=== PATIENT | male | born 1965 | race Caucasian/White ===

== ENCOUNTER 2024-09-06 21:56 | Inpatient (IN) | payer MEDICAID ==
[~2024-09-06] VITALS: Ht 182.9 cm; Wt 89.5 kg
[2024-09-06] MEDS ORDERED: heparin 10,000 units/1 ML INJ IV PRN (22:05)
--- NOTE | 2024-09-06 22:06 | ELECTROCARDIOGRAPH REPORT ---
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 Sajan Mata Measurements Intervals [place] Rate: 82 P: 60 NH: 149 QRS: 41 QRSD: 90 T: 107 QT: 369 QTc: 431 Interpretive Statements Sinus rhythm Ventricular premature complex Probable left atrial enlargement Anteroseptal infarct, old Nonspecific T abnormalities, lateral leads Electronically Signed On 09-07-2024 6:34:[address] Sajan Mata Please click the below link to view image of tracing.
[2024-09-06 22:24] LABS: BASOPHILS # (AUTO) 0.1 X10'3 (0-0.2); BASOPHILS % (AUTO) 0.5 % (0-1); EOSINOPHILS # (AUTO) 0.1 X10'3 (0-0.9); EOSINOPHILS % (AUTO) 1.1 % (0-6); HEMATOCRIT 42.6 % (42.0-52.0); HEMOGLOBIN 14.3 g/dl (14.0-17.9); LYMPHOCYTES # (AUTO) 2.7 X10'3 (1.1-4.8); LYMPHOCYTES % (AUTO) 26.2 % (21-51); MEAN CORPUSCULAR HEMOGLOBIN 28.3 PG (27.0-31.0); MEAN CORPUSCULAR HGB CONC 33.6 g/dL (33.0-36.5); MEAN CORPUSCULAR VOLUME 84.3 FL (78-98); MEAN PLATELET VOLUME 8.7 FL (7.4-10.4); MONOCYTES # (AUTO) 0.7 X10'3 (0-0.9); MONOCYTES % (AUTO) 6.7 % (2-12); NEUTROPHILS # (AUTO) 6.8 X10'3 (1.8-7.7); NEUTROPHILS % (AUTO) 65.5 % (42-75); PLATELET COUNT 200 X10'3 (140-440); RED BLOOD COUNT 5.05 X10'6 (4.70-6.10); RED CELL DISTRIBUTION WIDTH 15.3 % (11.5-14.5); WHITE BLOOD COUNT 10.3 X10'3 (4.5-11.0)
[2024-09-06 22:37] LABS: PROTHROMBIN TIME 10.6 SECONDS (9.0-12.0)
[2024-09-06] MEDS: heparin 25,000 UNIT/250ml bag 250 ML IV PRN (22:51)
[2024-09-06] MEDS: MESSAGE TO NURSING IV ONE (23:01)
--- NOTE | 2024-09-06 23:02 | Physician Documentation ---
History of Present Illness ~ Chief Complaint: Chest Pain Stated Complaint: TRANSFER Time Seen by MD: 22:05 Primary Medical Doctor: None Mode of Arrival: EMS HPI This gentleman is a transferred from the outside facility for evaluation of NSTEMI. He presented to [facility] for evaluation of several hours of substernal chest pain radiating into left neck/jaw. Similar to his prior heart attacks which he had six of. No particular palliating factors, exertional, accompanied by shortness a breath. History of multiple stents. No concerns for tobacco, alcohol or illicit substance use at this time Medication Reconciliation Allergies: Coded Allergies: No Known Allergies (Unverified , 09/06/24) Review of Systems ROS 10 point review of systems was performed and unless noted above in HPI is negative for acute process/complaint. Physical Exam Vital Signs: Source: Oral, Heart Rate: 85, Respiratory Rate: 13, BP: 151/93, Pulse Oximetry: 92, Weight: 89.500 Oxygen Flow Rate: 0 Physical Exam GENERAL: Awake, alert, oriented, GCS 15, no apparent distress, non-toxic appearing, answers questions, follows commands appropriately. HEENT: Atraumatic, normocephalic, pupils equal, extraocular muscles intact, sclerae anicteric, mucus membranes moist, oropharynx is clear, no stridor. NECK: supple, full active range of motion, trachea midline, no thyromegaly, no lymphadenopathy, no JVD. CARDIOVASCULAR: regular rate/rhythm, no murmurs/gallops/rubs, Pulses are 2+ in all extremities and symmetric. Capillary refill less than 2 seconds. PULMONARY: Nonlabored, good air movement ,no respiratory distress, speaking in full sentences, clear to auscultation bilaterally, no wheezing, no ronchi, no rales, no accessory muscle use. GASTROINTESTINAL: Soft, non-tender, non-distended, normal active bowel sounds, no organomegaly, no pulsatile masses, no CVA tenderness. NEUROLOGIC: Lucid with normal mental status. Normal facial symmetry. Moves all extremities symmetrically and with purpose. No truncal ataxia. Speech is fluid without evidence of dysarthria or aphasia, no focal deficits appreciated. MUSCULOSKELETAL: There is full range of motion of all extremities. There is no joint pain or joint swelling or joint erythema. There is no muscle pain or tenderness or swelling. EXTREMITIES: warm, well-perfused, no cyanosis, no clubbing, no edema, no acute deformities. Skin: warm, dry, no rashes or lesions, no jaundice, no petechiae orpurpura. No ecchymosis. PSYCHIATRIC: Normal affect, normal insight, normal concentration. Focused exam: [] Progress Results/Orders Results/Orders Orders - BULMARO REAVES DO Monitor (09/06/24 22:00) Saline Lock (09/06/24 22:00) Oxygen (09/06/24 22:00) Hs Troponin I W Calculations (09/06/24 22:00) Hs Troponin I W Calculations (09/07/24 00:00) Hs Troponin I W Calculations (09/07/24 01:00) Heparin 25,000 Unit/250ml Bag (Heparin 2 (09/06/24 22:05) Heparin 10,000 Unit/Ml 1ml (Heparin 10,0 (09/06/24 22:05) Cbc/Diff (09/07/24 03:00) Cbc/Diff (09/08/24 03:00) Cbc/Diff (09/09/24 03:00) Cbc/Diff (09/10/24 03:00) Cbc/Diff (09/11/24 03:00) Cardiac Ptt (09/07/24 04:30) CMP (09/06/24 23:01) Completed Orders - BULMARO REAVES DO Electrocardiogram (09/06/24 22:00) Cardiac Ptt (09/06/24 22:00) Pt Inr (09/06/24 22:00) Cbc/Diff (09/06/24 22:04) Message To Nursing (09/06/24 22:30) Medications Received in ER Medications (Trade) Dose Ordered Sig/Rashmi Route PRN Reason Start Time Stop Time Status Last Admin Dose Admin Heparin Sodium/ Dextrose 250 ml @ 0 mls/hr Q0M PRN IV TO MAINTAIN PTT WITHIN RANGE 09/06/24 22:05 09/06/24 22:51 10 MLS/HR Vital Signs 09/06/24 09/06/24 22:02 22:40 Pulse 85 Resp 16 13 B/P (MAP) 151/93 Pulse Ox 92 O2 Flow Rate 0 Laboratory Tests Test 09/06/24 22:13 White Blood Count 10.3 Red Blood Count 5.05 Hemoglobin 14.3 Hematocrit 42.6 Mean Corpuscular Volume 84.3 Mean Corpuscular Hemoglobin 28.3 Mean Corpuscular Hemoglobin Concent 33.6 Red Cell Distribution Width 15.3 H Platelet Count 200 Mean Platelet Volume 8.7 Neutrophils (%) (Auto) 65.5 Lymphocytes (%) (Auto) 26.2 Monocytes (%) (Auto) 6.7 Eosinophils (%) (Auto) 1.1 Basophils (%) (Auto) 0.5 Neutrophils # (Auto) 6.8 Lymphocytes # (Auto) 2.7 Monocytes # (Auto) 0.7 Eosinophils # (Auto) 0.1 Basophils # (Auto) 0.1 CBC Comment Prothrombin Time 10.6 INR International Normalized Ratio 1.0 APTT (Heparin Protocol) 39 L Coagulation Comments Troponin I High Sensitivity 88425 *H Troponin I High Sens Percent Delta Troponin I Hi Sens Absolute Change EKG/XRAY/CT/US/VASC/MRI EKG : Additional Comment EKG was obtained and interpreted by myself shows sinus rhythm of 82, normal IL interval, narrow QRS, no QT prolongation, normal axis, no STEMI, to inversion in aVL noted. T-wave inversion in the V3 through V6 noted. Medical Decision Making Findings Facility Status: ED Holds, RME process The plan was discussed with the patient, who demonstrates clear understanding of the plan and is in agreement with the plan unless otherwise noted in the chart. All questions have been answered, all concerns were addressed unless otherwise documented. I was available throughout their ED stay for frequent reassessment and questions. Differential Diagnoses (considered and possible or likely): [Differential diagnosis considered includes chest wall pain, pleurisy, pneumonia, pulmonary embolus, GERD, esophagitis, gastritis, anxiety, stress reaction, costochondritis, acute coronary syndrome, aortic dissection, pericarditis, myocarditis, or pneumothorax.] ??Differential Diagnoses (considered and unlikely, not requiring evaluation currently): [Aortic/great vessels dissection was considered but it is unlikely based on absence of ripping, tearing, migratory chest pain, absence of syncope or focal neurologic deficits, physical examination indicating equal and symmetric pulses.] MDM Data Please see HPI for the following: Independent Historians and external Records Review. Historian: [Patient] Independent Historians: ?[EMS, record review] Medication Management: [Reviewed medication list] Social History and determinants: [Reviewed] Please see the body of the note for the following: Any independent interpretations of ECG, imaging studies. All vitals signs/haemodynamics, ordered tests were independently reviewed and interpreted by myself. Nursing triage complaint and vitals reviewed, additional nursing notes were reviewed as available and I agree unless otherwise noted or documented in contradiction in the chart Vital Signs: Independently reviewed Labs: Independently interpreted Imaging: Independently interpreted Old Medical Records: Independently reviewed, see HPI for relevant summary and information Pulse Oximetry: [97%] interpreted as [normal on room air] by me [Marketing Campaign Analyst: [Regular Rate, Regular rhythm, no ectopy, NSR] reviewed and interpreted by me] Additionally notably showing: [Hemodynamically stable. Laboratory [place] [address] in one] Tests considered but not ordered include: [Catheterization can be done on an inpatient basis] Social Determinants of Health Impact: Patient was evaluated in [facility], or [facility] [place] to healthcare due to below par ratio of patient to medical providers. [] Comorbid Conditions Impacting Present Evaluation and Care/Treatment: [History of multiple MIs] Management Discussions with other Healthcare Providers: [Hospitalist regarding admission] Treatment and Disposition Medication Management (Given or considered): [Heparin drip]. See EMR for details Consideration for Hospitalization/Escalation/Deescalation of Care: Admission for inpatient treatment is necessary for further management of his NSTEMI ?ED Course:?[No clinical deterioration] ?Shared decision making:?[] Code status:?FULL Please see the full Electronic Medical Record for full details of nursing documentation, medications list, other records of complete past medical history and conditions, vital signs, laboratory studies, and any radiologic study interpretations by radiologists. Portions of this note were completed using [employer] dictation software and as a result there may exist minor errors in spelling. I have reviewed elements of past family and social history and agree as included in note. Departure Disposition: 09 ADMITTED INPATIENT Impression: Primary Impression: NSTEMI (non-ST elevated myocardial infarction) Condition: Guarded Referrals: NO PRIMARY CARE PROVIDER (PCP) Education Educated: Patient Educated regarding: diagnosis, treatment, prognosis, need for follow up Critical Care Note Critical Care Note CRITICAL CARE TIME: [45 ] minutes Treatments/Evaluations: Close monitoring and treatment of unstable vital signs, cardiorespiratory, and neurologic status, while maintaining tight balance of fluid, respiratory, and cardiac interventions. This time includes discussing the case with the patient and the patients family. This time does not include all procedures stated elsewhere in this record. This time also includes reviewing old records, labs and radiological studies. This time includes examining and re- examining the patient. Additionally, this time also includes arranging care with admitting and consulting physicians. Signature Scribe Signature: No scribe Attestation: This note accurately reflects clinical decisions, work performed by myself, DO JEAN PAUL Lee NICHOLAS M DO September 06, 2024 23:02
[2024-09-06] MEDS ORDERED: LOP12.5T PO (23:20)
[2024-09-06] MEDS ORDERED: PANT-47 PO (23:20)
[2024-09-06 23:46] LABS: ALANINE AMINOTRANSFERASE 55 U/L (12-78); ALBUMIN 3.2 G/DL (3.4-5.0); ALBUMIN/GLOBULIN RATIO 0.8 (1.1-1.5); ALKALINE PHOSPHATASE 119 IU/L (46-116); ANION GAP 8 (8-16); ASPARTATE AMINO TRANSFERASE 252 U/L (10-37); BILIRUBIN,TOTAL 0.6 MG/DL (0.1-1.0); BLOOD UREA NITROGEN 20 MG/DL (7-18); BUN/CREATININE RATIO 20.4 (10.0-20.0); CALCIUM 8.8 MG/DL (8.5-10.1); CHLORIDE 106 MMOL/L (99-107); CREATININE 0.98 MG/DL (0.60-1.10); GLUCOSE 112 MG/DL (70-104); POTASSIUM 3.9 MMOL/L (3.5-5.1); SODIUM 139 MMOL/L (135-145); TOTAL CARBON DIOXIDE 25.1 MMOL/L (24-32); TOTAL PROTEIN 7.4 G/DL (6.4-8.2); eCRCL 90 ML/MIN; eGFR 79 ML/MIN
[2024-09-06] MEDS ORDERED: acetaminophen 325mg tablet PO PRN (23:55)
[2024-09-06] MEDS ORDERED: ondansetron/PF 4mg/2ml inj IV PRN (23:55)
[2024-09-06] MEDS ORDERED: potassium Cl 20 mEq SR tablet PO PRN ×2 (23:55)
[2024-09-06] MEDS ORDERED: magnesium Cl slow-release 64mg tablet PO PRN (23:55)
[2024-09-06] MEDS ORDERED: magnesium hydroxide 30ml (MOM) UD suspension PO PRN (23:55)
[2024-09-06] MEDS ORDERED: magnesium sulf-water 2g/50mL 50 ML IV PRN (23:55)
[2024-09-06] MEDS ORDERED: potassium Cl 40MEQ/1/2NS 520ml 520 ML IV PRN (23:55)
[2024-09-06] MEDS ORDERED: magnesium sulf-water 4G/100mL 100 ML IV PRN (23:55)
[2024-09-06] MEDS ORDERED: morphine 2 MG/ML inj. syringe IV PRN (23:55)
[2024-09-07] VITALS (22 sets, daily range): BP systolic 87–143; BP diastolic 53–89; PULSE 58–89; RESP 15–26; TEMP 97.1–99.5; O2SAT 91–99
--- NOTE | 2024-09-07 00:20 | HISTORY AND PHYSICAL-Residence ---
History & Physical Providers to CC Resident Creating Document: PAMMARTINRosyDENISEKEYSHAWNELSA Sahu ~ History of Present Illness Primary Medical Doctor: None Reason for Admit\Complaint: NSTEMI History of Present Illness 58 year old male with history of coronary artery disease status post multiple stent placement, heart failure, hypertension transferred from [place] to our hospital for NSTEMI management. Patient reported he had retrosternal chest pain started today in the morning at 10:00 a.m. while he was rest in the bed. Reported it was radiated to the jaw and his left arm with severity 10/10 he reported he had intermittent chest pain, but due to insurance issue he did not seek medical attention. He reported associated shortness of breaths Patient had history of multiple stent placement, his last hospitalization was 18 months ago. However patient reported intermittent chest pain and shortness of breath with with minimal physical activity even after after revascularization. Allergies: Coded Allergies: No Known Allergies (Unverified , 09/06/24) Home Medications Home Medications Active Reported PROTONIX tablet (Pantoprazole Sodium) 40 Mg Tablet.dr 1 Tab PO DAILY 30 Days Lopressor tablet (Metoprolol Tartrate) 25 Mg Tablet 1 Tab PO DAILY 30 Days Hold for SBP below 100mm Hg Hold for Heart Rate below 60. Past Medical History Past Medical History Heart failure Hypertension Myocardial infarction status post stent placement Hyperlipidemia Past Surgical History Surgical History Comment Multiple coronary stent placement, last one was 18 months ago Family History Family History: FH: coronary artery disease (Mother, at 59 due to heart attack) Past Social History Smoking: Cigarettes (Patient was heavy smoker about three packs a day which decreased the amount of smoking gradually and recently smoke about nine cigarettes daily) Alcohol Use: Sober (Stopped drinking alcohol 15 years ago) Drug Use: Marijuana ROS ROS The history of present illness included a review of system, which yielded relevant positives and negatives Exam Vitals: Vital Signs Date Time Temp Pulse Resp B/P (MAP) Pulse Ox O2 Delivery O2 Flow Rate FiO2 09/07/24 00:00 81 18 126/66 (86) 91 2.0 General: General: Awake and Alert, no acute distress. HEENT: Conjunctiva pink, Sclera clear, Mucus Membranes moist. Neck: Supple without masses and tenderness. Resp: Diminished breath sounds bilaterally Heart: Regular Rate and rhythm, normal S1 and S2 without murmur Abdomen: Soft and non tender no organomegaly Extremities: Left lower extremity amputation below-knee, right lower extremity trace edema Skin: Warm and Dry. Neurological: Speech is clear, alert, and oriented x 4, no gross neurological deficits Diagnostic Data Last Recorded Lab Results: 09/06/24221209/06/242212 Diagnostic Data: Laboratory Tests Test 09/06/24 22:13 Prothrombin Time 10.6 SECONDS (9.0-12.0) INR International Normalized Ratio 1.0 INR APTT (Heparin Protocol) 39 SECONDS (45-60) L Coagulation Comments Advance Care Planning Advanced Care plannin - 30 Minutes Additional Plan 58 years old male with history of coronary artery disease status post stent, heart failure transferred from [place] due to chest pain and evaluation for NSTEMI NSTEMI LILLIE score: Five, EKG in our facility showed: Rate 82, sinus rhythm, normal axis, narrow QRS, T- wave inversion in V3, V4, V5 [place] [address] trending up, repeated EKG showed no EKG changes D-dimer normal in [facility] Received nitroglycerin, atorvastatin 80 mg, metoprolol 50 b.i.d. started nitroglycerin sublingual for pain management and morphine Heparin drip started Chest x-ray unremarkable, Echocardiography ordered Cardiology Dr China posada consulted, who agreed to see patient as his recommendation patient does not need to be NPO Other comorbidities Hypertension, GERD, heart failure Continue metoprolol aspirin, echocardiography is pending Code Status: Full DVT prophylaxis: Heparin drip Analgesia/sedation: Nitroglycerin morphine Line/tube: Peripheral GI prophylaxis: Protonix Nutrition: NPO after midnight Prognosis: Guarded Disposition: Continue monitoring patient in PCU floor with telemetry, NPO after midnight Keyshawn Crisostomo MD Internal Medicine Resident I saw and discussed the patient with the resident team 58 yo M with NSTEMI and chest pain cardiology consulted and med mgt in place we will follow Date of Service: Sep 07, 2024 Billing Provider: PRAVIN MADRIGAL MD, [place], RES Sep 07, 2024 00:20 PRAVIN MADRIGAL MD Sep 07, 2024 08:21
[2024-09-07] MEDS: acetaminophen 325mg tablet PO ONE (00:23)
[2024-09-07] MEDS: morphine 2 MG/ML inj. syringe IV PRN (00:28)
[2024-09-07 00:32] LABS: MAGNESIUM 2.1 MG/DL (1.5-2.4); PRO BRAIN NATRIURETIC PEPTIDE 541 PG/ML (0-125)
[2024-09-07 00:34] LABS: HEMOGLOBIN A1C 6.4 % (4.5-6.2)
[2024-09-07] MEDS: atorvastatin 20mg tablet PO SCH (00:53)
[2024-09-07] MEDS: metoprolol tartrate 50mg tablet PO SCH (00:54)
--- NOTE | 2024-09-07 00:56 | RADIOLOGY REPORT ---
CHEST RADIOGRAPH Indication: CHEST PAIN Technique: Single frontal view of the chest was obtained COMPARISON: None FINDINGS / IMPRESSION: Lines and Tubes: None Lungs / Pleura: Mild pulmonary edema. Possible small right pleural effusion. Cardiomediastinal contours: Unremarkable
--- NOTE | 2024-09-07 03:02 | ELECTROCARDIOGRAPH REPORT ---
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 Lui Hill Please click the below link to view image of tracing.
[2024-09-07] MEDS: nitroGLYCERIN 0.4mg SUBLingual tab SL PRN (03:18)
[2024-09-07] MEDS: pantoprazole 40 MG vial IV SCH (03:41)
[2024-09-07] MEDS: albuterol 2.5 MG/3 ML nebule NEB PRN (04:08)
[2024-09-07 06:17] LABS: CHOL/HDL RATIO 3.8 (0.00-4.99); CHOLESTEROL 158 MG/DL (0-200); HDL CHOLESTEROL 42 MG/DL (35-60); LDL CHOLESTEROL 102 MG/DL (50-100); MAGNESIUM 2.1 MG/DL (1.5-2.4); POTASSIUM 4.5 MMOL/L (3.5-5.1); TRIGLYCERIDES 113 MG/DL (20-135)
[2024-09-07 06:18] LABS: BASOPHILS % (AUTO) 0.3 % (0-1); EOSINOPHILS # (AUTO) 0.1 X10'3 (0-0.9); EOSINOPHILS % (AUTO) 0.6 % (0-6); HEMATOCRIT 42.1 % (42.0-52.0); HEMOGLOBIN 13.9 g/dl (14.0-17.9); LYMPHOCYTES % (AUTO) 16.6 % (21-51); MEAN CORPUSCULAR HEMOGLOBIN 28.1 PG (27.0-31.0); MEAN CORPUSCULAR HGB CONC 33.1 g/dL (33.0-36.5); MEAN CORPUSCULAR VOLUME 84.9 FL (78-98); MEAN PLATELET VOLUME 9.5 FL (7.4-10.4); MONOCYTES # (AUTO) 0.7 X10'3 (0-0.9); MONOCYTES % (AUTO) 5.8 % (2-12); NEUTROPHILS # (AUTO) 9.4 X10'3 (1.8-7.7); NEUTROPHILS % (AUTO) 76.7 % (42-75); PLATELET COUNT 213 X10'3 (140-440); RED BLOOD COUNT 4.95 X10'6 (4.70-6.10); RED CELL DISTRIBUTION WIDTH 15.5 % (11.5-14.5); WHITE BLOOD COUNT 12.2 X10'3 (4.5-11.0)
[2024-09-07] MEDS: aspirin 81mg, enteric-coated 1 TAB TABLET.DR PO SCH (08:00)
[2024-09-07] MEDS: K and/or MAG REPLACEMENT MC SCH (08:00)
[2024-09-07] MEDS: docusate sod 100mg capsule PO SCH (08:00)
[2024-09-07] MEDS: MESSAGE TO NURSING IV ONE (08:50)
[2024-09-07] MEDS ORDERED: verapamil 2.5 mg/ml inj IV ONE (09:10)
[2024-09-07] MEDS ORDERED: LIDOcaine 1% (10mg/ml) 2ml vial ONE (09:10)
[2024-09-07] MEDS ORDERED: fentaNYL/PF 50MCG/1 ML 2ML syringe ONE (09:10)
[2024-09-07] MEDS ORDERED: midazolam 1 mg/ML 2ml injection ONE (09:10)
[2024-09-07] MEDS ORDERED: nitroGLYCERIN 500mcg/5mL D5W 5 ML IV ONE (09:11)
[2024-09-07] MEDS ORDERED: iohexol 350MG/ML 100ml bottle IV ONE ×2 (09:11→11:59)
[2024-09-07] MEDS ORDERED: heparin 1,000unit/ml 10ml vial 10 ML ONE (09:11)
[2024-09-07] MEDS ORDERED: aspirin 325mg tablet ONE (12:24)
[2024-09-07] MEDS ORDERED: ticagrelor 90mg tablet ONE (12:24)
[2024-09-07] MEDS ORDERED: ondansetron/PF 4mg/2ml inj IV PRN (13:05)
[2024-09-07] MEDS ORDERED: proCHLORperazine 10 MG/2 ml inj IV PRN (13:05)
[2024-09-07] MEDS: OXAZEpam 15mg capsule PO PRN (14:37)
[2024-09-07] MEDS: LORazepam 1 MG tablet PO ONE (16:38)
--- NOTE | 2024-09-07 19:53 | CARDIOLOGY REPORT ---
DATE OF SERVICE: 09/07/2024 DICTATING PHYSICIAN: Lui Hill MD CARDIAC CATHETERIZATION REPORT PROCEDURES: * Left heart catheterization. * Selective coronary angiography. * Left ventriculography. * Angioplasty of the diagonal branch of the LAD. * Stenting x 1 of the diagonal branch of the LAD. * Conscious sedation monitoring time for 45 minutes. INDICATION: Non-STEMI. PHYSICIAN: Lui Hill MD PROCEDURE: After informed consent was obtained, the patient was brought to the cardiac laborer concrete paving in a fasting state where the patient was prepped and draped in the usual sterile manner. After adequate anesthesia was obtained using 1% lidocaine to the right wrist, a 5-Ethiopian sheath was inserted into the right radial artery using a modified Seldinger technique. Thereafter, using a cocktail of heparin, verapamil and nitroglycerin, the cocktail was given via the sheath in the radial artery to prevent coronary vasospasm and for anticoagulation. Next, using an Ultimate-2 catheter, the catheter was advanced under fluoroscopy guidance into the ascending aorta. The catheter was then manipulated to engage the left coronary system and coronary angiography of the left system was obtained. Next, the catheter was disengaged and manipulated to engage the right coronary artery and selective coronary angiography of the right coronary artery was obtained. Thereafter, the catheter was disengaged from the right coronary artery and manipulated to advance into the left ventricle where left ventriculography in the WOOD position was obtained. The catheter was then removed. Hemostasis was obtained using the radial band. Following diagnostic angiography, PCI was performed as described below. HEMODYNAMICS: For the patient's hemodynamics, please refer to the event log. Left ventricular end diastolic pressure was 35 mmHg. There was no significant gradient across the aortic valve on catheter pullback. FINDINGS: The left main coronary artery is a medium-caliber vessel with mild luminal irregularities. The left anterior descending coronary artery has a previously deployed stent in the proximal LAD. 20%-30% in-stent restenosis is noted. The diagonal branch of the LAD, however, has a 90% stenosis. The circumflex coronary artery is occluded. A previously deployed stent in the distal circumflex is noted, which is occluded. The right coronary artery is a medium-caliber vessel with a previously deployed stent in the proximal RCA. Mild luminal irregularities of the right coronary artery. PERCUTANEOUS CORONARY INTERVENTION: Using an XB LAD guiding catheter, an 0.014 Choice PT wire was carefully navigated across the diagonal lesion. This was then predilated with a 2.0 x 12 mm balloon. Next, using a 2.5 x 18 mm Xience stent, the stent was advanced across the lesion where it was deployed to rated burst atmospheres. Next, using a 2.75 noncompliant balloon, the balloon was advanced across the lesion and the lesion post dilated to rated burst atmospheres. Followup angiography revealed very good angiographic results. IMPRESSION: * Previously deployed stent in the proximal LAD with mild 20%-30% in-stent restenosis. The diagonal branch of the LAD, however, had a 90% lesion. This was angioplastied and stented with a 2.5 x 18 Xience stent with very good angiographic results. * Occluded [place] circumflex coronary artery with a previously deployed distal stent that is also occluded. * Patent RCA stent with mild luminal irregularities. * Left ventriculography was not performed. The left ventricle was crossed. No gradient noted. Left ventricular end diastolic pressure was extremely elevated at 35 mmHg. Lui Hill MD TID: [id number] RECEIPT: [id number] ANDERS/RAKESH
[2024-09-07] MEDS ORDERED: metoprolol tartrate 1mg/ml inj IV SCH (19:55)
[2024-09-07] MEDS ORDERED: apixaban 5mg tablet PO SCH (20:00)
[2024-09-07] MEDS: ticagrelor 90mg tablet PO SCH (20:47)
[2024-09-08] MEDS: mag hydrox/Alum hydrox/simeth 30ml oral suspension PO PRN (01:01)
[2024-09-08 02:00] VITALS: BP 117/79; PULSE 69; RESP 11; TEMP 97.1; O2SAT 96
[2024-09-08] MEDS ORDERED: morphine 4 MG/ML inj SYRINge IV PRN (03:25)
[2024-09-08] MEDS: morphine 4 MG/ML inj SYRINge IV PRN (03:30)
[2024-09-08 07:11] LABS: BASOPHILS % (AUTO) 0.2 % (0-1); EOSINOPHILS % (AUTO) 0.2 % (0-6); HEMATOCRIT 42.6 % (42.0-52.0); HEMOGLOBIN 14.1 g/dl (14.0-17.9); LYMPHOCYTES % (AUTO) 13.4 % (21-51); MEAN CORPUSCULAR HEMOGLOBIN 28.2 PG (27.0-31.0); MEAN CORPUSCULAR HGB CONC 33.2 g/dL (33.0-36.5); MEAN PLATELET VOLUME 9.3 FL (7.4-10.4); MONOCYTES # (AUTO) 1.1 X10'3 (0-0.9); MONOCYTES % (AUTO) 7.8 % (2-12); NEUTROPHILS # (AUTO) 11.5 X10'3 (1.8-7.7); NEUTROPHILS % (AUTO) 78.4 % (42-75); PLATELET COUNT 189 X10'3 (140-440); RED BLOOD COUNT 5.02 X10'6 (4.70-6.10); RED CELL DISTRIBUTION WIDTH 15.2 % (11.5-14.5); WHITE BLOOD COUNT 14.7 X10'3 (4.5-11.0)
[2024-09-08 07:16] LABS: ALANINE AMINOTRANSFERASE 50 U/L (12-78); ALBUMIN 2.9 G/DL (3.4-5.0); ALBUMIN/GLOBULIN RATIO 0.7 (1.1-1.5); ALKALINE PHOSPHATASE 110 IU/L (46-116); ANION GAP 9 (8-16); ASPARTATE AMINO TRANSFERASE 126 U/L (10-37); BILIRUBIN,TOTAL 1.6 MG/DL (0.1-1.0); BLOOD UREA NITROGEN 18 MG/DL (7-18); BUN/CREATININE RATIO 15.8 (10.0-20.0); CALCIUM 8.6 MG/DL (8.5-10.1); CHLORIDE 100 MMOL/L (99-107); CHOL/HDL RATIO 2.4 (0.00-4.99); CHOLESTEROL 121 MG/DL (0-200); CREATININE 1.14 MG/DL (0.60-1.10); GLUCOSE 120 MG/DL (70-104); HDL CHOLESTEROL 50 MG/DL (35-60); LDL CHOLESTEROL 64 MG/DL (50-100); SODIUM 134 MMOL/L (135-145); TOTAL CARBON DIOXIDE 24.6 MMOL/L (24-32); TOTAL PROTEIN 7.3 G/DL (6.4-8.2); TRIGLYCERIDES 52 MG/DL (20-135); eCRCL 78 ML/MIN; eGFR 66 ML/MIN
[2024-09-08 08:00] VITALS: BP 104/63; PULSE 83; RESP 14; RESP 17; TEMP 97.7; O2SAT 95; O2SAT 96
[2024-09-08 08:25] VITALS: PULSE 74; RESP 20; O2SAT 98
[2024-09-08] MEDS ORDERED: TICA90TA PO (12:59)
[2024-09-08] MEDS ORDERED: ALBU2.5V7 NEB (12:59)
[2024-09-08] MEDS ORDERED: ASPI-1071 PO (12:59)
[2024-09-08] MEDS ORDERED: NITR0.4T51 SL (12:59)
[2024-09-08] MEDS ORDERED: ATOR-429 PO (12:59)
[2024-09-08] MEDS ORDERED: DOCU100C40 PO (12:59)
--- NOTE | 2024-09-08 16:07 | DISCHARGE SUMMARY-Residence ---
Discharge Summary Providers to CC Resident Creating Document: STANLEY DE LEON RES ~ Discharge Summary Admission Diagnosis: NSTEMI Hospital Course DATE OF ADMISSION: 09/06/2024 DATE OF DISCHARGE: 09/08/2024 Discharge Diagnosis\Comment: Non-STEMI S/p angiography and angioplasty with one stent at diagonal branch of LAD by Dr. China Hill on 09/07/2024 History of CA History of s/p multiple cardiac stents and AK History of HFrEF 40-45% History of HTN History of GERD Operations\Procedures: Cardiac angiography and angioplasty with stent placement by Dr China Hill on 09/07/2024 Consultants: Dr. China Hill, cardiology team Complications: None Condition on DC: Stable New Medications: Atorvastatin Calcium* (Lipitor*) 80 Mg Tablet 1 TAB PO DAILY for 30 Days, #30 TAB Albuterol Sulfate (Albuterol Sulfate) 2.5 Mg/3 Ml Vial.neb 2.5 MG NEB Q4H PRN for SOB or wheezing for 30 Days, #2 INH Aspirin (Ecotrin*) 81 Mg Tablet.dr 1 TAB PO DAILY for 30 Days, #30 TAB.SR Docusate Sodium (Docusate Sodium) 100 Mg Caps 100 MG PO BID PRN for constipation for 30 Days, #60 CAP Nitroglycerin SL* (Nitrostat SL*) 0.4 Mg Tablet 0.4 MG SL Q5M PRN for chest pain for 14 Days, #20 TAB Ticagrelor (Brilinta) 90 Mg Tablet 90 MG PO BID for 30 Days, #60 TAB Continued Medications: Metoprolol Tartrate (Lopressor tablet) 25 Mg Tablet 1 TAB PO DAILY for 30 Days, #60 TAB Hold for SBP below 100mm Hg Hold for Heart Rate below 60. Pantoprazole Sodium (PROTONIX tablet) 40 Mg Tablet.dr 1 TAB PO DAILY for 30 Days, #30 TAB 0 Refills Discharge Summary: A 58 years old male with a past medical history of CAD, s/p multiple cardiac stents and AK, HFrEF 40-45%, HTN, and GERD who was transferred from [facility] for evaluation of substernal radiated chest pain and highly elevated serial troponoins with the concern of NSTEMI for further higher level of management. Hospital course: [place] [id number] along with EKG finding of PVC, old Moose-septal infarct, non specific T abnormalities in V3-V6. Her LILLIE score was 5. He was given NTG tabs SL and IV Morphine to control his Chest pain and anxiety. He was put on the IV Heparin infusion. His 2D Echocardiogram with preliminary report showed [id number]-[id number] reduced LV fun ction, multi segmental wall motion abnormalities, mild concentric hypertrophy, LVEF 40-45%, LA mild to moderate dilated, RA mildly dilated, trace MR, TR, normal pericardium and no pericardial effusion. Chest x-ray show unremarkable. Cardiology was promptly consulted, Dr. China Hill profound angiography and angioplasty with one stent at the diagonal branch of LAD without complications. All of the medical treatments including DAPT with ticagrelor and aspirin, at orvastatin 80 mg daily with a goal of LDL< 55, metoprolol 50 mg b.i.d. After the procedure, the patient did not show any complications including bleeding from the puncture site. Today, All of the labs were reviewed WNL including WBC 14.7, hemoglobin 14.1, hematocrit 42.6, platelet count 189, serum sodium 134, potassium four, chloride 100, BUN 18 and creatinine 1.14, RBS 120, total bilirubin 1.6, AST 126, ALT 50, TG 52, cholesterol total 121, LDL 64, HDL 50. All of his questions and concerns were addressed with the best knowledge of her rectum before he was discharged home. All of the vitals were stable at the moment with temp 97.7 F, NM 74/minute, RR 20/minute, BP 104/63 mm Hg, pulse oximetry 98% on room air. On exam, General: Well alert, well oriented, not confused, not agitated, not in acute distress, well cooperated during the physical. HEENT: Conjunctive are pink, sclerae clear, no icterus, pupil is equal in both sides, reactive to light, no ear discharge, no pharyngeal erythema or an edema, mouth and lips are moist. Neck: Supple, no JVD, no lymphadenopathy and thyromegaly. Lungs:Equal air entry on both lungs, no additional sounds Heart: S1-S2 regular sinus rhythm and, regular rate, no gallops, no rubs, no murmurs Abdomen: No visible peristalsis, Bowel sounds present on auscultation, soft, nontender, no guarding, no rigidity Extremities: No signs of bleeding from the puncture site over the wrist, No obvious deformities, no pitting edema bilaterally, capillary refill intact, able to wiggle toes both sides, peripheral pulsations are intact on both sides [employer]: No focal neurological deficits, no motor and sensory weakness in all 4 extremities, could move all 4 extremities Musculoskeletal: No joint swelling, deformities, inflammations, and no scoliosis and back tenderness Skin: No active skin lesions and rashes Discharge instructions: -return to ER for any emergency conditions including chest pain/pressure/discomfort, progressive dizziness and lightheadedness and passing out, severe low blood pressure and heart rate etc. -medication compliance is very important including Brilinta and aspirin, and atorvastatin -follow up with the PCP and Cardiology Dr. Hill office in 1-2 weeks after discharge for further management. -strongly encouraged for her healthy diet, to quit smoking and drinking too much with the goal of LDL<55 Resident MD attestation: Patient was seen, examined and discussed with attending , Dr. Hector DE LEON MD Internal Medicine Resident, PGY2 [facility] *Problems/Diagnosis: (1) NSTEMI (non-ST elevated myocardial infarction) Status: Resolved Total Time Spent on D/C: > 30 Minutes Date of Service: Sep 08, 2024 Billing Provider: VIVIEN REED MD, TIN, RES Sep 08, 2024 15:26
--- NOTE | 2024-09-08 18:31 | CARDIOLOGY REPORT ---
APPROVED REPORT EXAM: Limited 2D, Doppler, and color-flow Echocardiogram. Patient Location: [address] Blood Pressure: 111/74 mmHg Heart Rate: 68 bpm Rhythm: Sinus Rhythm Indications Angina/Chest Pain Elevated Troponins (395983) S/P CATH (Stent X 1) 09/07/2024 Hx of Multiple Stents Hx of [place] [employer] Legal Secretary: Cecilia Hill MD Consult/CATH Previous echo: None 2D Dimensions RVDd 3.4 cm LA Diam0.0 cm IVSd 1.3 (0.7-1.1cm) LVDd 6.5 cm PWd 1.3 (0.7-1.1cm) IVSs 1.3 (0.8-1.2cm) RA Minor4.4 cmLVDs 5.4 (2.5-4.0cm) PWs 1.3 (0.8-1.2cm) LVOT Diameter 2.16 (1.8-2.4cm) LVEF(%) 34.0 (>50%) IVC 13.81 mm FS (%) 12.9 % SV 41.2 ml CO 3.1 L/min M-Mode Dimensions IVSd 1.34 (0.7-1.1cm) LVDd 6.15 (4.0-5.6cm) PWd 1.26 (0.7-1.1cm) IVSs 1.42 cm LVDs 5.38 (2.0-3.8cm) FS (%) 15 % PWs 1.54 cm ESV(Teich) 104.8 ml LVEF(%) 31 (>50%) Aortic Valve AoV Peak Pascual. 106.6 cm/s AoV VTI 17.9 cm AO Peak GR. 4.5 mmHg AO Mean GR. 2 mmHg LVOT VTI 17.92 cm LVOT Peak Pascual. 99.4 cm/s ROC(VTI)/BSA 3.69 cm2/m2 ROC (VTI) 3.69 cm2 Mitral Valve MV E Velocity 103.6 cm/s MV Peak Gr. 5 mmHg MV DECEL TIME 160 ms MV A Velocity 33.0 cm/s MV Mean Gr. 1 mmHg MV PHT 60 ms E/A Ratio 3.1 MVA (PHT) 3.67 cm2 MV MHfa483.1 cm/sMV VMean52.5 cm/s MVA VTI2.49 cm2MV VTI26.5 cm Tricuspid Valve RAP ESTIMATE 10 mmHg LEFT VENTRICLE The LV is dilated in size with mild to moderately reduced function. Multisegmental wall motion abnorm alities. Recommend clinical correlation if indicated. Mild concentric hypertrophy. Overall LVEF is 40 -45%. RIGHT VENTRICLE Right ventricle is mildly dilated with grossly normal function. Unable to estimate PA systolic pressu re due to lack of a sufficient TR jet. ATRIA Left atrium is mild to moderately dilated. Right atrium is mildly dilated. AORTIC VALVE The AV appears sclerotic without stenosis or insufficiency. Measurements are estimated due to poor im age quality. Recommend clinical correlation if indicated. MITRAL VALVE Mild MV annular calcification without stenosis. Trace regurgitation. TRICUSPID VALVE TV appears structurally normal with trace regurgitation. PULMONIC VALVE Pulmonic valve is not well visualized. GREAT VESSELS Aortic root is not well visualized. IVC is normal in size and collapses greater than 50% with i nspiration. PERICARDIUM Normal pericardium. No pericardial effusion seen. Other Information Study Quality: Poor. TDS due to patients mental and respiratory status. Post CATH, could not tolerat e positioning. Lung attenuation. Conclusion The LV is dilated in size with ? mild to moderately reduced function. Multisegmental wall motion abnormalities. Recommend clinical correlation if indicated. Mild concentric hypertrophy. Overall LV EF is 40-45%. Right ventricle is mildly dilated with grossly normal function. Unable to estimate PA systolic pressu re due to lack of a sufficient TR jet. Left atrium is mild to moderately dilated. Right atrium is mildly dilated. The AV appears sclerotic without stenosis or insufficiency. Measurements are estimated due to poor i mage quality. Recommend clinical correlation if indicated. Mild MV annular calcification without stenosis. Trace regurgitation. TV appears structurally normal with trace regurgitation. Normal pericardium. No pericardial effusion seen.
== END 2024-09-08 14:00 | disposition home or self-care (01) | DRG 174 ==
LOC: ER 21:57 → ED HOLD 09-07 → UNDOADMIN 09-07 00:51 → ED HOLD 09-07 02:45 → PCU 3S 09-07 02:45
PROVIDERS: ADMIT Internal Medicine; ATTEND Family Medicine
PROC: 027034Z Dilation of Coronary Artery, One Artery with Drug-eluting Intraluminal Device, Percutaneous Approach (ICD-10-PCS; principal; 2024-09-07)
PROC: 4A023N7 Measurement of Cardiac Sampling and Pressure, Left Heart, Percutaneous Approach (ICD-10-PCS; 2024-09-07)
PROC: B2111ZZ Fluoroscopy of Multiple Coronary Arteries using Low Osmolar Contrast (ICD-10-PCS; 2024-09-07)
DX: I21.4 Non-ST elevation (NSTEMI) myocardial infarction (principal); T82.855A Stenosis of coronary artery stent, initial encounter; I50.22 Chronic systolic (congestive) heart failure; I11.0 Hypertensive heart disease with heart failure; K21.9 Gastro-esophageal reflux disease without esophagitis; I25.10 Atherosclerotic heart disease of native coronary artery without angina pectoris; Y83.8 Other surgical procedures as the cause of abnormal reaction of the patient, or of later complication, without mention of misadventure at the time of the procedure; Y92.89 Other specified places as the place of occurrence of the external cause
CPT/HCPCS: 36415; 71045; 80053; 80061; 83036; 83735; 83880; 84132; 84484; 85025; 85610; 85730; 87081; 93005; 93308; 93458; 94640; 94760; 96365; 99152; 99153; 99291; A4615; A4620; C1725; C1751; C1769; C1874; C1894; C9600; G0378; J1644; J2003; J2250; J2270; J2470; J3010; J3490; J7030; Q9967